=== PATIENT | male | born 2000 | race African-American/Black ===

== ENCOUNTER 2023-11-27 12:21 | Emergency (ER) | payer BC, OTHER ==
[2023-11-27 12:45] VITALS: BP 134/83; PULSE 76; RESP 18; TEMP 98.1; BMI 34.0
== END 2023-11-27 17:12 | disposition home or self-care (01) ==
LOC: JERFT 12:21
DX: M25.562 Pain in left knee (principal); M79.605 Pain in left leg; V43.62XA Car passenger injured in collision with other type car in traffic accident, initial encounter; Y92.410 Unspecified street and highway as the place of occurrence of the external cause
CPT/HCPCS: 73562-TC-LT-FY; 99283-25